=== PATIENT | female | born 2005 | race Two or more races ===

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

== ENCOUNTER 2025-01-05 12:51 | Emergency (ER) | payer MEDICAID, SELFPAY ==
--- NOTE | 2025-01-05 | XR_ITS ---
MRI abdomen, without contrast. MRCP Date and time of exam: January 05, 2025, 1838 hours INDICATIONS: Elevated liver function test today with back pain upper abdominal pain, gallbladder sonogram January 05, 2025 gallstones Technique: Multiple axial and coronal images of the abdomen have been obtained with the Siemens 1.5T MRI scanner. Images obtained included T1 weighted transverse images, T2-weighted transverse images, T2-weighted transverse images fat-suppressed, T2 weighted haste fat suppressed transverse images, T1 weighted images, in and out of phase images, T2-weighted coronal images, breath hold, T2 weighted haze coronal images as well as T2 weighted coronal thick slab images, MRCP. Findings: No focal liver lesions Gallbladder wall appears thickened, coronal image 8 with multiple stones Common bile duct common hepatic duct are not enlarged no stones Spleen is not enlarged No hydronephrosis No pancreatitis No abdominal lymphadenopathy No ascites IMPRESSION: Findings consistent with calculus cholecystitis, clinical correlation advised No common hepatic or common bile duct stones
[2025-01-05 13:05] VITALS: BP 112/77; PULSE 85; RESP 17; TEMP 36.7; O2SAT 98; BMI 23.9
[2025-01-05 13:53] LABS: Basophils # (Auto) 0.0 Thou/mm3 (0.0-0.2); Basophils % (Auto) 0 % (0-2.5); Eosinophils # (Auto) 0.0 Thou/mm3 (0.0-0.5); Eosinophils % (Auto) 1 % (0-10); Hematocrit 37.9 % (36.0-46.0); Hemoglobin 11.9 g/dL (12.0-16.0); Immature Granulocytes Auto 0.01 Thou/mm3 (0.00-0.00); Lymphocytes # (Auto) 1.6 Thou/mm3 (1.0-5.0); Lymphocytes % (Auto) 26 % (10-50); Mean Corpuscular HGB Conc 31.4 g/dl (31.0-37.0); Mean Corpuscular Hemoglobin 23.7 pg (25.0-35.0); Mean Corpuscular Volume 76 fL (80-100); Monocytes # (Auto) 0.4 Thou/mm3 (0.0-0.8); Monocytes % (Auto) 7 % (0-12); Neutrophils # (Auto) 3.8 Thou/mm3 (1.8-7.7); Neutrophils % (Auto) 65 % (37-80); Nucleated Red Blood Cell # 0.00 Thou/mm3 (0.00-0.00); Nucleated Red Blood Cell % 0 /100 WBC (0); Platelet Count 242 Thou/mm3 (140-440); RDW Standard Deviation 48.0 fL (36.4-46.3); Red Blood Count 5.02 Miln/mm3 (4.00-5.20); White Blood Count 5.9 Thou/mm3 (4.5-11.0)
[2025-01-05 14:29] LABS: Collection Type, Urine Clean Catch; Squamous Epithelial Cell,Urine 0 /hpf (0-5)
[2025-01-05 14:53] LABS: Alanine Aminotransferase 599 U/L (10-49); Albumin, Serum 4.9 gm/dL (3.5-5.0); Albumin/Globulin Ratio 1.8 (1.2-2.2); Alkaline Phosphatase 188 U/L (46-116); Anion Gap 12 (7-16); BUN/Creatinine Ratio 22 Ratio (12-20); Bilirubin,Total 2.0 mg/dL (0.3-1.2); Blood Urea Nitrogen 13 mg/dL (9-23); Calcium 9.1 mg/dL (8.3-10.6); Calcium (Corrected) 9.1 mg/dL (8.5-10.1); Carbon Dioxide 24.1 mMol/L (20.0-31.0); Chloride 108 mMol/L (98-107); Creatinine (Component) 0.6 mg/dL (0.6-1.3); Estimated Creatinine Clearance 130.2 mL/min (>60); Globulin 2.7 gm/dL (2.3-3.5); Glucose 116 mg/dL (74-106); Osmolality,Calculated 287 (275-295); Potassium 3.7 mMol/L (3.4-5.1); Sodium 144 mMol/L (136-145); Total Protein 7.6 gm/dL (5.7-8.2); eGFR > 60 See Note
[2025-01-05 14:58] LABS: HCG,Qualitative Serum Negative
[2025-01-05 15:01] LABS: Aspartate Amino Transferase 1214 U/L (0-34)
--- NOTE | 2025-01-05 15:18 | XR_ITS ---
Examination: Abdomen sonogram, Limited Date and time of exam: January 05, 2025, 1542 hours INDICATIONS: Right upper abdominal pain and nausea this week Technique: Real-time oliva scale transabdominal sonographic images of the upper abdomen obtained. Findings: Gallstones Normal gallbladder wall Normal common bile duct 0.30 cm Pancreatic head 2.0 cm Liver 14.91 cm no liver lesions Normal hepatopetal portal venous flow Patent IVC IMPRESSION: Cholelithiasis, negative for cholecystitis
--- NOTE | 2025-01-05 15:18 | PD.EDRME ---
Rapid Medical Screening Exam RME Arrival date/time: 01/05/25 12:51 19-year-old female with medical history significant for systemic lupus erythematous presents with concerns for back pain patient reports she is 5 weeks Chief Complaint: Back Pain/Injury Time Seen by Provider: 01/05/25 13:07 Vital signs: Vital Signs Temperature 98.1 F 01/05/25 13:05 Pulse Rate 85 01/05/25 13:05 Respiratory Rate 17 01/05/25 13:05 Blood Pressure 112/77 01/05/25 13:05 Pulse Oximetry (%) 98 01/05/25 13:05 Oxygen Delivery Method Room Air 01/05/25 13:05 Vital signs reviewed by provider: Yes Exam: On exam patient has mild pain of the middle back Clinical Impression: Lab work and imaging ordered
[2025-01-05 15:22] LABS: Bilirubin,Urine 1+ (Negative); Blood,Urine 3+ (Negative); Budding Yeast,Urine Present; Clarity,Urine Turbid (Clear/Hazy); Color,Urine Drk-Yellow (Lt Yel-Yel); Glucose, Urine Negative (Negative); Ketones,Urine 2+ (Negative); Leukocyte Esterase,Urine Negative (Negative); Nitrite,Urine Negative (Negative); PH,Urine 6.0 (5.0-7.0); Protein,Urine 1+ (Neg - Trace); RBC,Urine 102 /hpf (0-3); Specific Gravity,Urine 1.038 (1.001-1.035); Urobilinogen,Urine OVER mg/dL (0.0-1.0); WBC,Urine 14 /hpf (0-5)
[2025-01-05 15:31] LABS: Culture Indicated,Urine Yes
[2025-01-05 15:40] LABS: Lipase 39 U/L (12-53)
--- NOTE | 2025-01-05 15:40 | PD.EDBACK ---
ED Back Injury Pain RME/HPI General Chief Complaint: Back Pain/Injury Stated Complaint: 5 weeks post , right lower back pain Time Seen by Provider: 01/05/25 13:07 Arrival date/time: 01/05/25 12:51 19-year-old female patient, 1 month , came in for evaluation regarding mid back pain. This been ongoing for the last 4 days, severity moderate, also complaining of nausea. Denies any vomiting no diarrhea no constipation no fever no cough. Denies any trauma to the back. Denies any other complaints. RME / HPI RME / HPI Narrative: 01/05/25 12:51 19-year-old female with medical history significant for systemic lupus erythematous presents with concerns for back pain patient reports she is 5 weeks Exam: On exam patient has mild pain of the middle back Impression: Lab work and imaging ordered Related Data Home Medications ?Medication ?Instructions ?Recorded ?Confirmed aspirin 81 mg tablet,delayed 81 mg PO QDAY 11/29/24 12/18/24 release Previous Rx's ?Medication ?Instructions ?Recorded metoclopramide HCl 5 mg tablet 5 mg PO BID PRN nausea and 05/29/24 (Reglan) vomiting #14 tabs acetaminophen 500 mg tablet 500 mg PO Q6H PRN pain #30 tabs 01/05/25 (Tylenol Extra Strength) dicyclomine 20 mg tablet 20 mg PO QID PRN abdominal pain 01/05/25 #30 tabs ibuprofen 600 mg tablet 600 mg PO Q8H PRN pain #30 tabs 01/05/25 Allergies Allergy/AdvReac Type Severity Reaction Status Date / Time No Known Allergies Allergy Verified 01/05/25 13:02 Review of Systems Review of Systems Narrative Review of Systems: Review of system reviewed and within normal limits except mentioned in HPI ED Exam Narrative Physical exam: VITAL SIGNS: Reviewed. GENERAL APPEARANCE: Alert and interactive, follows commands, no acute distress, HEAD AND FACE: Non-traumatic. ENT: PERRL, pink conjunctivitis, eyelid no trauma, Mucous membrane moist. NECK: Supple, nontender, no nuchal rigidity. CHEST: No tenderness, no crepitus, no paradoxical movement, no retractions. LUNGS: Clear, well ventilated, symmetric, no rales, no wheezing, no ronchi, no stridor, good breath sounds bilaterally. HEART: Regular rate, regular rhythm, no murmur, no gallops. ABDOMEN: Soft, positive bowel sounds, nondistended, no guarding, tenderness to the right upper quadrant on deep palpation, no rebound, no masses, RECTAL: Deferred. GENITAL: Deferred. NEUROLOGICAL: Gross motor function intact sensory function intact, Appropriate for age. MUSCULOSKELETAL: low back nontender, full range of motion. EXTREMITIES: Nontender, full range of motion. SKIN: Color pink, dry, no rash, no lacerations, no abrasions, no contusions. LYMPHATICS: Deferred. Course Quality Measures none Orders Category Date Time Status Insert IV NOW Care 01/05/25 20:13 Active MRI Screening NOW Care 01/05/25 15:35 Active MR MRCP Stat Exams 01/05/25 Completed US gall bladder Stat Exams 01/05/25 15:18 Completed Bilirubin,Direct Stat Lab 01/05/25 13:39 Completed CBC Stat Lab 01/05/25 13:39 Completed CBC [CBC] Stat Lab 01/05/25 20:52 Received CMP [Comprehensive Metabolic Panel] Stat Lab 01/05/25 13:39 Completed CMP [Comprehensive Metabolic Panel] Stat Lab 01/05/25 20:52 Received HCG,Qualitative Serum Stat Lab 01/05/25 13:39 Completed Hepatitis Acute Panel Stat Lab 01/05/25 13:39 Received Lipase Stat Lab 01/05/25 13:39 Completed PTT [Partial Thromboplastin Time] Stat Lab 01/05/25 13:39 Completed UA, C/S IF [Urinalysis, C/S if Indicated] Stat Lab 01/05/25 14:00 Completed Urine Culture Stat Lab 01/05/25 14:00 Received Ondansetron Odt [Zofran Odt] Med 01/05/25 15:39 Discontinued 4 mg PO X1 ONE Piper/Tazo 3.375 gm Premix [Zosyn] Med 01/05/25 19:51 Discontinued 3.375 gm in 50 ml IV X1 Ringers Lactated 1000 ml [Lactated Ringers] 1,000 ml Med 01/05/25 20:03 Discontinued IV 999 mls/hr Vital Signs Vital signs: Vital Signs Temperature 98.1 F 01/05/25 13:05 Pulse Rate 85 01/05/25 13:05 Respiratory Rate 17 01/05/25 13:05 Blood Pressure 112/77 01/05/25 13:05 Pulse Oximetry (%) 98 01/05/25 13:05 Oxygen Delivery Method Room Air 01/05/25 13:05 Back Pain / Injury MDM Narrative MDM Narrative:: 19-year-old female patient, 1 month , came in for evaluation regarding mid back pain. This been ongoing for the last 4 days, severity moderate, also complaining of nausea. Denies any vomiting no diarrhea no constipation no fever no cough. Denies any trauma to the back. Denies any other complaints. Laboratory workup significant for transaminitis, total bili of 2.0, AST of 1294, ALT of 599. MRCP showed Findings consistent with calculus cholecystitis, clinical correlation advised No common hepatic or common bile duct stones Patient was referred to general surgeon on-call, Dr Leong, who examined the patient in the emergency room, and told me that patient is not having any acute cholecystitis clinically. Patient is okay to discharge home.He will see the patient in the clinic in few days. Plan of care discussed with patient and family, who agrees to be discharged home. Patient data External records reviewed:: None Clinical information provided by:: patient Social determinants that could affect healthcare access:: none Patient has the following chronic illnesses:: None How is presenting disease/condition affected by chronic disease/condition?: no chronic disease Evaluation data The following diagnostics were reviewed and interpreted by me:: lab results and radiology exam(s) Lab and/or radiology exams considered but not ordered:: None Interpretation Summary: See above Medications / Prescriptions Medications or Prescriptions considered but not ordered:: None Medication administrations:: Medication Administration History Discontinued Medications Piperacillin/Tazobactam/Dextrose (Zosyn) 3.375 gm in 50 mls @ 100 mls/hr IV X1 ONE; Protocol Stop: 01/05/25 20:20 Last Admin: 01/05/25 20:54 Dose: 100 mls/hr Documented By: BR Lactated Ringer's (Lactated Ringers) 1,000 mls @ 999 mls/hr IV .Q1H1M ONE Stop: 01/05/25 21:03 Last Admin: 01/05/25 20:54 Dose: 999 mls/hr Documented By: EMELINA Ondansetron HCl (Ondansetron Odt 4 Mg Tabrap) 4 mg PO X1 ONE; Protocol Stop: 01/05/25 15:40 Last Admin: 01/05/25 16:08 Dose: Not Given Documented By: ARELY Non-Admin Reason: Patient Refused Zofran, IV fluids, IV Zosyn Consultations Consultation(s) initiated? (list below): No Diagnosis Differential diagnosis back pain/injury: other (Mid back pain, cholelithiasis, transaminitis) Most likely diagnosis given after review of the tests above:: Mid back pain, cholelithiasis transaminitis Admission Indicated Admission indicated?: not indicated (Stable) Admission Request Was there a request for admission?: No Disposition Plan Disposition Plan: Discharge Discharge Attestation Discharge Attestation: The patient and all family members were given an opportunity to ask questions and understood the discharge instructions. Discharge instructions specifically effects, indications for sooner follow up or return to the emergency department, and the expected course of current diagnosis. Patient condition: Stable Discharge Plan Plan Patient Disposition: HOME (Self Care) Discharge Disposition comment: Stable Prescriptions/Referrals Prescriptions/Med Rec: New ibuprofen 600 mg tablet 600 mg PO Q8H PRN (Reason: pain) Qty: 30 0RF acetaminophen [Tylenol Extra Strength] 500 mg tablet 500 mg PO Q6H PRN (Reason: pain) Qty: 30 0RF dicyclomine 20 mg tablet 20 mg PO QID PRN (Reason: abdominal pain) Qty: 30 0RF No Action aspirin 81 mg tablet,delayed release (DR/EC) 81 mg PO QDAY Patient Comments: TAKE 2 TABLETS BY MOUTH EVERY DAY metoclopramide HCl [Reglan] 5 mg tablet 5 mg PO BID PRN (Reason: nausea and vomiting) Qty: 14 0RF Referrals: Vic Curry MD [Primary Care Provider] - In 1 week Problem List Clinical Impression: Back pain, Gallstone, Transaminitis Patient/Caregiver Discharge Instructions Discharge Activity: activity as tolerated Education Materials: What Are Gallstones Additional Instructions: Thank you for the opportunity for serving you today. You are stable for discharged . You are advised to: Follow-up with your PCP this Tuesday and ask for referral to Dr Leong general surgeon Return to ED for worsening of symptoms Increase oral fluids Take medication as prescribed Please avoid eating fatty, greasy, fried foods Print Language: Grenadian Stand Alone Forms: Tegan Award Info., Patient Portal Info Letter PA/PUBLIC TRANSPORTATION INSPECTOR Supervising Physician PA/KLEVER Supervising Physician: Dr Grimaldo
[2025-01-05 15:55] LABS: Partial Thromboplastin Time 29.8 Seconds (22.0-36.0)
[2025-01-05 16:08] VITALS: BP 110/78; PULSE 78; RESP 18; TEMP 36.5; O2SAT 98
[2025-01-05 16:25] LABS: Bilirubin,Direct 0.9 mg/dL (0.0-0.3)
[2025-01-05 18:58] VITALS: TEMP 36.4
[2025-01-05 19:24] VITALS: BP 115/80; PULSE 74; RESP 16; TEMP 36.7; O2SAT 99
[2025-01-05] MEDS: RINGERS LACTATED 1000 ML 1,000 ML 999 ML IV (20:54)
[2025-01-05] MEDS: PIPER/TAZO 3.375 GM PREMIX 3.375 GM/50 ML BAG IV (20:54)
[2025-01-05 21:19] LABS: Basophils # (Auto) 0.0 Thou/mm3 (0.0-0.2); Basophils % (Auto) 0 % (0-2.5); Eosinophils # (Auto) 0.1 Thou/mm3 (0.0-0.5); Eosinophils % (Auto) 3 % (0-10); Hematocrit 35.6 % (36.0-46.0); Hemoglobin 11.2 g/dL (12.0-16.0); Immature Granulocytes Auto 0.00 Thou/mm3 (0.00-0.00); Lymphocytes # (Auto) 2.2 Thou/mm3 (1.0-5.0); Lymphocytes % (Auto) 47 % (10-50); Mean Corpuscular HGB Conc 31.5 g/dl (31.0-37.0); Mean Corpuscular Hemoglobin 23.7 pg (25.0-35.0); Mean Corpuscular Volume 75 fL (80-100); Monocytes # (Auto) 0.4 Thou/mm3 (0.0-0.8); Monocytes % (Auto) 8 % (0-12); Neutrophils # (Auto) 2.0 Thou/mm3 (1.8-7.7); Neutrophils % (Auto) 42 % (37-80); Nucleated Red Blood Cell # 0.00 Thou/mm3 (0.00-0.00); Nucleated Red Blood Cell % 0 /100 WBC (0); Platelet Count 232 Thou/mm3 (140-440); RDW Standard Deviation 47.4 fL (36.4-46.3); Red Blood Count 4.73 Miln/mm3 (4.00-5.20); White Blood Count 4.7 Thou/mm3 (4.5-11.0)
[2025-01-05 21:45] LABS: Alanine Aminotransferase 854 U/L (10-49); Albumin, Serum 4.6 gm/dL (3.5-5.0); Albumin/Globulin Ratio 1.8 (1.2-2.2); Alkaline Phosphatase 203 U/L (46-116); Anion Gap 12 (7-16); BUN/Creatinine Ratio 18 Ratio (12-20); Bilirubin,Total 2.9 mg/dL (0.3-1.2); Blood Urea Nitrogen 9 mg/dL (9-23); Calcium 9.5 mg/dL (8.3-10.6); Calcium (Corrected) 9.5 mg/dL (8.5-10.1); Carbon Dioxide 24.5 mMol/L (20.0-31.0); Chloride 107 mMol/L (98-107); Creatinine (Component) 0.5 mg/dL (0.6-1.3); Estimated Creatinine Clearance 156.3 mL/min (>60); Globulin 2.6 gm/dL (2.3-3.5); Glucose 96 mg/dL (74-106); Osmolality,Calculated 283 (275-295); Potassium 3.3 mMol/L (3.4-5.1); Sodium 143 mMol/L (136-145); Total Protein 7.2 gm/dL (5.7-8.2); eGFR > 60 See Note
[2025-01-05 21:55] LABS: Aspartate Amino Transferase 1270 U/L (0-34)
[2025-01-05 22:28] VITALS: BP 120/80; PULSE 68; RESP 16; TEMP 36.8; O2SAT 100
[2025-01-06 19:57] LABS: Hepatitis A Antibody IgM Non Reactive (Non React); Hepatitis B Core Antibody IgM Non Reactive (Non React); Hepatitis B Surface Antigen Non Reactive (Non React); Hepatitis C Antibody Non Reactive (Non React)
== END 2025-01-05 22:29 | disposition home or self-care (01) ==
PROVIDERS: Nurse Practitioner Family; Nurse Practitioner Primary Care; Emergency Provider Emergency Medicine; PCP Obstetrics & Gynecology
DX: K80.20 Calculus of gallbladder without cholecystitis without obstruction (principal); R74.01 Elevation of levels of liver transaminase levels
CPT/HCPCS: 36415; 74181; 76705; 80053; 80074; 81001; 82248; 83690; 84703; 85025; 85730; 87086; 96360; 99284; J2543; J7120